=== PATIENT | female | born 1980 | race Hispanic/Latino ===

== ENCOUNTER 2021-04-09 16:21 | Emergency (ER) | payer SELFPAY ==
[2021-04-10 17:34] LABS: SARS-CoV-2 PCR by NAA DETECTED (NotDetected)
== END 2021-04-09 18:28 | disposition home or self-care (01) ==
LOC: MADERS 16:21
DX: U07.1 COVID-19 (principal)
CPT/HCPCS: 87804; 99284; U0003; U0005

== ENCOUNTER 2021-04-23 20:59 | Emergency (ER) | payer SELFPAY ==
[2021-04-23 22:03] LABS: Bilirubin Moderate (Negative); Blood, Urine Negative (Negative); Clarity Clear (Clear); Glucose, Urine (Dipstick) Negative (Negative); Ketone, Urine Negative (Negative); Leukocyte Negative (Negative); Nitrite Negative (Negative); Protein, Urine (Dipstick) Trace mg/dL (Neg-Trace); Specific Gravity, Urine 1.025 (1.005-1.030)
[2021-04-23 22:09] LABS: Amphetamine Not Detected (NotDetected); Barbiturates Screen Not Detected (NotDetected); Benzodiazepine Screen Not Detected (NotDetected); Cocaine Metabolite Screen Not Detected (NotDetected); Medtox Control Line Valid? VALID (VALID); Methadone Not Detected (NotDetected); Methamphetamine Not Detected (NotDetected); Opiate Screen Not Detected (NotDetected); Oxycodone Screen Not Detected (NotDetected); Phencyclidine (PCP) Not Detected (NotDetected); THC/Cannabinoid Screen Not Detected (NotDetected); Tricyclic Screen Not Detected (NotDetected)
[2021-04-23] MEDS ORDERED: Ondansetron PF 4 MG/2 ML Vial ONE (22:22)
[2021-04-23] MEDS ORDERED: Sodium Chloride 0.9% 1,000 ML ONE (22:22)
[2021-04-23 22:50] LABS: CRP (Inflammatory) 0.71 mg/dL (= or < 0.5)
[2021-04-23 23:07] LABS: ALT (SGPT) 4108 U/L (8-55); AST (SGOT) 1448 U/L (5-34); Albumin 3.9 g/dL (3.5-5.0); Alkaline Phosphatase 303 U/L (40-110); Anion Gap 13 mmol/L (10-20); BUN (Urea Nitrogen) 12 mg/dL (7.0-18.7); Bilirubin, Total 5.3 mg/dL (0.2-1.2); Calc. Creatinine Clearance 0 mL/min (70-130); Calcium 9.5 mg/dL (7.8-10.44); Carbon Dioxide 25 mmol/L (22-29); Chloride 104 mmol/L (98-107); Globulin 3.5 g/dL (2.4-3.5); Glucose 119 mg/dL (70-105); Protein, Total 7.4 g/dL (6.0-8.3); Sodium 138 mmol/L (136-145)
[2021-04-23 23:12] LABS: Mean Corpuscular HGB CONC 33.3 g/dL (32.0-36.0); Mean Corpuscular Volume 90.1 fL (78.0-98.0); Mean Platelet Volume 9.9 fL (7.4-10.4); Platelet Count 154 thou/uL (130-400); RBC Distribution Width 11.1 % (11.5-14.5); Red Blood Cell (RBC) Count 4.34 mill/uL (4.20-5.40); White Blood Cell (WBC) Count 5.1 thou/uL (4.8-10.8)
[2021-04-23 23:13] LABS: Lymphocytes 25 % (21-51); MDiff Complete? YES; Monocytes 16 % (0-10); Neutrophil 59 % (42-75); RBC Morphology Normal
[2021-04-24] MEDS ORDERED: Sodium Chloride 0.9% 1,000 ML ONE ×2 (00:22→03:42)
[2021-04-24 00:33] LABS: INR-International Normal Ratio 1.2; Prothrombin Time 14.8 sec (12.0-14.7)
[2021-04-24 00:34] LABS: PTT 37.3 sec (22.9-36.1)
[2021-04-24 01:20] LABS: Acetaminophen Less than 6.0 mcg/mL (10.0-30.0); Salicylate Less than 8.0 mg/dL (15.0-30.0)
[2021-04-24 01:31] LABS: ALT (SGPT) 4004 U/L (8-55); AST (SGOT) 1383 U/L (5-34); Albumin 3.9 g/dL (3.5-5.0); Alkaline Phosphatase 301 U/L (40-110); Anion Gap 12 mmol/L (10-20); BUN (Urea Nitrogen) 10 mg/dL (7.0-18.7); Bilirubin, Total 5.4 mg/dL (0.2-1.2); Calc. Creatinine Clearance 0 mL/min (70-130); Calcium 9.3 mg/dL (7.8-10.44); Carbon Dioxide 27 mmol/L (22-29); Chloride 104 mmol/L (98-107); Globulin 3.6 g/dL (2.4-3.5); Glucose 105 mg/dL (70-105); Potassium 3.9 mmol/L (3.5-5.1); Protein, Total 7.5 g/dL (6.0-8.3); Sodium 139 mmol/L (136-145)
[2021-04-24 08:08] LABS: Alcohol Less than 10 mg/dL (Less than 10)
[2021-04-24 11:44] LABS: HBCM Index 0.11 S/CO (0-0.79); HBSAg Index 0.27 S/CO (0-0.99); Hep A IgM AB Non-Reactive (NonReactive); Hep B Surf Ag Non-Reactive S/CO (NonReactive); Hep C IgG Ab Non-Reactive (NonReactive); Hep C Index 0.13 S/CO (0-0.79); Hepatitis B Core IgM Abs Non-Reactive (NonReactive)
[2021-04-24 12:11] LABS: SARS-CoV-2 NAA Rapid Test Not Detected (NotDetected)
[2021-04-24] MEDS ORDERED: Dextrose 5 %-0.45 % NaCl 1,000 ML ONE (16:43)
== END 2021-04-24 20:55 | disposition short-term general hospital (02) ==
LOC: MADERS 20:59
DX: B17.9 Acute viral hepatitis, unspecified (principal); S36.119A Unspecified injury of liver, initial encounter; Z20.822 Contact with and (suspected) exposure to COVID-19; Z86.16 Personal history of COVID-19; F17.210 Nicotine dependence, cigarettes, uncomplicated
CPT/HCPCS: 71045; 74177; 80053; 80074; 80306; 80307; 81003; 82550; 83605; 84484; 85025; 85379; 85610; 85730; 86140; 87086; 93005; 94760; 96374; J2405; J7042; J7050; U0002